=== PATIENT | male | born 1995 | race Caucasian/White ===

== ENCOUNTER 2024-04-17 15:46 | Emergency (ER) | payer BC, SELFPAY ==
--- NOTE | ~2024-04-17 | CT_ITS ---
EXAMINATION: CT HEAD WITHOUT CONTRAST CLINICAL INFORMATION: Seizure. COMPARISON: None available. TECHNIQUE: Contiguous axial imaging was performed from the skull base to vertex without intravenous administration of contrast. This CT examination was performed using dose optimization techniques as appropriate, variously including the following: *Automated exposure control *Adjustment of mA and/or kV according to patient size (this includes techniques or standardized protocols for targeted exams where dose is matched to indication/reason for exam; i.e. extremities or head) *Use of iterative reconstruction technique DLP: 692 mGy-cm FINDINGS: No intracranial hemorrhage, large infarction, or mass lesion is seen. No extra-axial collection is appreciated. The ventricles are normal in size and configuration without evidence of hydrocephalus. The visualized paranasal sinuses and mastoid air cells are clear. CT/CT head/brain wo IV con IMPRESSION: No acute intracranial finding. Electronically signed by: Leonid Loyola MD 04/17/2024 05:14 PM EDT
[2024-04-17 16:02] VITALS: BP 149/95; PULSE 121; RESP 16; TEMP 36.7; O2SAT 100; BMI 36.0
--- NOTE | 2024-04-17 16:03 | ECG_ITS ---
Test Reason : SEIZURE Blood Pressure : / mmHG Vent. Rate : 111 BPM Atrial Rate : 111 BPM P-R Int : 130 ms QRS Dur : 086 ms QT Int : 308 ms P-R-T Axes : 058 013 018 degrees QTc Int : 418 ms Sinus tachycardia Otherwise normal ECG No previous ECGs available Referred By: Blade Taveras Electronically Signed By:VIMAL FIERRO
--- NOTE | 2024-04-17 16:04 | ED_ITS ---
HPI - General Adult General Chief complaint: Seizure Stated complaint: seizure Time Seen by Provider: 04/17/24 17:22 History of Present Illness ED Provider: Lauren MARTÍNEZ narrative: The patient is a 29-year-old male. He has a history of a seizure disorder. He is on levetiracetam and valproic acid. He has a neurologist at [facility]. He says he was diagnosed with a seizure disorder at age 15 or 16. Stable for a long time. He estimates that he has not had a seizure for at least 6 years and he has been permitted to drive. Today the patient took a dose of 10 mg of THC as an edible at around noon. At some point after that he went to a friend's house and was hanging out with his friend. At around 1:30PM the patient felt that his heart was racing and then he felt very anxious. He thought that perhaps this might be something related to his seizure disorder. He thought perhaps he was on the cusp of having a seizure. He says at 1 point he thought his legs felt odd and at 1 point he felt that his fingers were twitching and felt odd. He never lost consciousness and was talking throughout the episode. The episode lasted about 10 minutes. An ambulance was called. Paramedics apparently found the patient awake and alert with a normal mental status. He apparently had an oxygen saturation of 100%. He was tachycardic. He told paramedics he would have a family member drive him to the hospital and a family member then drove him to the hospital. He is now feeling better. He wonders if he had a panic attack. Related Data Allergies Allergy/AdvReac Type Severity Reaction Status Date / Time No Known Allergies Allergy Verified 04/17/24 16:03 [facility] Social History Social History Smoked in Last 30 Days: Yes Use of substances other than those prescribed or required for medical reasons: No Advance Directives: No Advance Directives Information Provided: No Physical Exam ED Vital Signs: Vital Signs - 24 hr 04/17/24 16:02 04/17/24 17:24 04/17/24 18:21 Temperature 98.0 F 98.9 F Pulse Rate 121 H 107 H 92 Respiratory Rate 16 17 18 Blood Pressure 149/95 H 134/77 121/78 Pulse Oximetry 100 100 98 Oxygen Delivery Method Room Air Room Air Room Air 04/17/24 19:02 Temperature 98.2 F Pulse Rate 92 Respiratory Rate 18 Blood Pressure 121/78 Pulse Oximetry 98 Oxygen Delivery Method Room Air BMI result Body Mass Index 36.0 Const Other: The patient is awake, alert, pleasant, cooperative. He has a somewhat soni 29-year-old. He does not appear in any distress HENMT Other: Face is symmetrical. Mucous membranes moist. No tongue injury. Eyes General: appearance normal, both eyes and all related structures Conjunctivae: conjunctivae normal Pupils: Equal, round and reactive pupils present EOM: EOMs intact bilaterally Neck Neck: Yes full ROM and Yes supple Resp Effort & Inspection: normal respiratory effort Auscultation: clear to auscultation bilaterally Cardio Rate: tachycardic Rhythm: regular rhythm Heart sounds: S1 normal heart sound present and S2 normal heart sound present GI Other: Abdomen is soft and nontender Skin Other: Skin is dry and unremarkable Neuro Other: The patient is awake and alert with a normal mental status. His cranial nerves are intact. He moves his extremities normally and appropriately. His gait is steady. He seems entirely neurologically intact cranial Cranial nerves: Yes Equal, round and reactive pupils present Extrem Other: No peripheral edema. No calf swelling or tenderness. No asymmetry Course Course Course Narrative: RMNE: Done by SHARI Taveras. 29-year-old male history of epilepsy presents to ED for seizure episode today. Patient states he has not had a seizure in 8 years. Patient states he has friends house and when he sat down on the couch he felt lightheaded, felt his extremities become stiff and his fingers and toes were trey. Patient states he never loss total consciousness. Patient was aware but felt stiff and fell extremity shaking. Negative for any neuro deficits. Labs ordered head CT scan Medical Decision Making Medical Decision Making MDM Narrative: The patient is a 29-year-old male who had an episode of feeling unwell earlier. He has a history of a seizure disorder but from his description of the episode there was no actual seizure activity. He feeling a sense of general unwellness and a sense of panic. He says that he felt that his hands were feeling strange. The patient also says that he took some THC as an edible about an hour or 2 before the episode. He took 10 mg. Patient had been triaged as if he had had a seizure but I really do not think his description of the episode is consistent with a seizure. He was quite tachycardic and so I ran a D-dimer. This was undetectable. He was observed. His tachycardia improved. He had no other concerning findings on his physical exam or in his history. The patient is counseled that he should continue his seizure medications. He should reconnect with his neurologist because he has not seen his neurologist recently. He should also follow up with his PCP. I think he should avoid using cannabis for awhile and use smaller doses. Lab Data 04/17/24 16:17 04/17/24 16:17 Labs: Lab Results 04/17/24 04/17/24 04/17/24 Range/Units 16:17 16:19 18:03 WBC 9.0 (4.8-10.8) X10*3/uL RBC 4.83 (4.60-5.80) X10*6/uL Hgb 15.3 (14.0-18.0) g/dl Hct 43.0 (42.0-52.0) % MCV 89.0 (80.0-98.0) fL MCH 31.7 (27.0-33.0) pg MCHC 35.6 (31.0-36.0) g/dl RDW 11.4 (11.0-16.0) % Plt Count 221 (160-400) X10*3/uL MPV 11.2 (9.4-12.4) fL Immature Gran % (Auto) 0.6 H (0.0-0.4) % Neut % (Auto) 72.4 (45-73) % Lymph % (Auto) 17.5 L (20-40) % [place] % (Auto) 8.0 (2-11) % Eos % (Auto) 0.9 (0-4) % Baso % (Auto) 0.6 (0-2) % Lymph # (Auto) 1.6 (1.2-4.9) X10*3/uL [place] # (Auto) 0.7 (0.1-1.2) X10*3/uL Eos # (Auto) 0.1 (0.0-0.4) X10*3/uL Baso # (Auto) 0.1 (0.0-0.2) X10*3/uL Abs Immat Gran (auto) 0.05 H (0.00-0.03) X10*3/uL Absolute Neuts (auto) 6.5 (2.0-8.3) x10*3/uL Absolute Nucleated RBC 0.000 (0.0-0.012) X10*3/uL Nucleated RBC % (auto) 0.0 (0.0-0.2) /100WBC D-Dimer High Sensitivty < 150 NG/ML Sodium 140 (135-145) mmol/L Potassium 3.6 (3.3-5.1) mmol/L Chloride 107 (96-108) mmol/L Carbon Dioxide 23 (22-29) mmol/L Anion Gap 14 (12-20) BUN 17 H (9-16) mg/dL Creatinine 0.86 (0.5-1.4) mg/dL Estim Creat Clear Calc 158.0 Estimated GFR > 60 Random Glucose 102 (60-115) mg/dL Calcium 9.6 (8.4-10.2) mg/dL Magnesium 1.8 (1.6-2.6) mg/dL Total Bilirubin 0.5 (0.0-1.0) mg/dL AST 18 (5-37) U/L ALT 13 (0-40) U/L Alkaline Phosphatase 53 (39-117) U/L Troponin I High Sens < 2.7 (<3.5-35.0) ng/L Total Protein 7.4 (6.5-8.0) g/dL Albumin 4.5 (3.5-5.0) g/dL Valproic Acid 62.7 (50.0-100.0) mcg/mL Independent Interpretation I performed an independent interpretation of an: EKG Interpretation: EKG at 16:03 shows sinus tachycardia at 111 beats per minute. Otherwise normal EKG Discharge Plan Discharge Clinical Impression: Near syncope Patient Disposition: Home, Self-Care Additional Instructions: I think your description of the symptoms you experienced today is much more consistent with an adverse reaction from cannabis (THC) than anything else. I think it is much less likely that what you experienced they had anything to do with your seizure disorder. Please continue your current seizure medications. Please plan on reaching out to your neurologist for a follow up appointment since you have not seen your neurologist for some time. I would recommend reducing your dose of cannabis in the future. I suspect that adverse reactions to cannabis are dose related. In addition to following up with your neurologist I would recommend you also follow up with your regular doctor. Return to the emergency room if you feel significantly worse at any time. Referrals: Ramy Dailey MD [Primary Care Provider] - (Near syncope) Interventions: ED Discharge Assessment Last Done: 04/17/24 19:02 Discharge Date/Time: 04/17/24 19:02 Print Language: Angolan
[2024-04-17 16:25] LABS: MANUAL DIFF FLAG NO
[2024-04-17 16:27] LABS: Basophils Absolute Auto 0.1 X10*3/uL (0.0-0.2); Basophils Percent Auto 0.6 % (0-2); Eosinophils Absolute Auto 0.1 X10*3/uL (0.0-0.4); Eosinophils Percent Auto 0.9 % (0-4); Hemoglobin 15.3 g/dl (14.0-18.0); Imm Gran Abs Auto 0.05 X10*3/uL (0.00-0.03); Imm Gran Pct Auto 0.6 % (0.0-0.4); Lymphocytes Absolute Auto 1.6 X10*3/uL (1.2-4.9); Lymphocytes Percent Auto 17.5 % (20-40); Mean Corpuscular HGB Conc 35.6 g/dl (31.0-36.0); Mean Corpuscular Hemoglobin 31.7 pg (27.0-33.0); Mean Platelet Volume 11.2 fL (9.4-12.4); Monocytes Absolute Auto 0.7 X10*3/uL (0.1-1.2); Neutrophils Absolute Auto 6.5 x10*3/uL (2.0-8.3); Neutrophils Percent Auto 72.4 % (45-73); Platelet Count 221 X10*3/uL (160-400); Red Blood Count 4.83 X10*6/uL (4.60-5.80); Red Cell Distribution Width 11.4 % (11.0-16.0)
[2024-04-17 16:43] LABS: Alanine Aminotransferase 13 U/L (0-40); Albumin Level 4.5 g/dL (3.5-5.0); Alkaline Phosphatase 53 U/L (39-117); Anion Gap 14 (12-20); Aspartate Amino Transferase 18 U/L (5-37); Bilirubin Total 0.5 mg/dL (0.0-1.0); Blood Urea Nitrogen 17 mg/dL (9-16); Calcium 9.6 mg/dL (8.4-10.2); Carbon Dioxide 23 mmol/L (22-29); Chloride 107 mmol/L (96-108); Estimated Glomerular Filt Rate > 60; Glucose Random 102 mg/dL (60-115); Magnesium 1.8 mg/dL (1.6-2.6); Potassium 3.6 mmol/L (3.3-5.1); Sodium 140 mmol/L (135-145); Total Protein 7.4 g/dL (6.5-8.0)
[2024-04-17 16:51] LABS: Valproate 62.7 mcg/mL (50.0-100.0)
[2024-04-17 16:52] LABS: Troponin-I High Sensitivity < 2.7 ng/L (<3.5-35.0)
[2024-04-17 17:24] VITALS: BP 134/77; PULSE 107; RESP 17; TEMP 37.2; O2SAT 100
[2024-04-17 18:21] VITALS: BP 121/78; PULSE 92; RESP 18; O2SAT 98
[2024-04-17 18:22] LABS: D Dimer High Sensitivity < 150 NG/ML
[2024-04-17 19:02] VITALS: BP 121/78; PULSE 92; RESP 18; TEMP 36.8; O2SAT 98
[2024-04-21 19:59] LABS: Levetiracetam Keppra 45.4 mcg/mL (6.0-46.0)
== END 2024-04-17 19:02 | disposition home or self-care (01) ==
PROVIDERS: Physician Assistant; Emergency Provider Emergency Medicine; PCP Internal Medicine
DX: R55 Syncope and collapse (principal); R56.9 Unspecified convulsions; R00.0 Tachycardia, unspecified; F12.90 Cannabis use, unspecified, uncomplicated; Z79.899 Other long term (current) drug therapy
CPT/HCPCS: 36415; 70450; 80053; 80164; 80177; 83735; 84484; 85025; 85379; 93005; 99284